=== PATIENT | female | born 1980 | race Caucasian/White ===

== ENCOUNTER 2019-06-19 07:28 | Inpatient (IN) | payer MEDICAID ==
[~2019-06-19] VITALS: Ht 170.2 cm; Wt 104.3 kg
[2019-06-19] MEDS ORDERED: PNV1TABL76 PO (08:48)
[2019-06-19] MEDS ORDERED: FERR325T6 MT (08:49)
[2019-06-19] MEDS ORDERED: FERR325T6 PO (08:49)
[2019-06-19] MEDS ORDERED: BUTORPHANOL TARTRATE 2 MG/ML VIAL IV PRN (09:00)
[2019-06-19] MEDS ORDERED: DEXT 5%/LR + PITOCIN 20UNITS/L 1,000 ML IV SCH (09:00)
[2019-06-19] MEDS ORDERED: CARBOPROST TROMETHAMINE 250 MCG/ML AMPUL IM PRN (09:00)
[2019-06-19] MEDS ORDERED: METHYLERGONOVINE MALEATE 0.2 MG/ML IM PRN (09:00)
[2019-06-19] MEDS ORDERED: LIDOCAINE HCL 1% 20ML VIAL (Pyxis) INJ INFIL SCH (09:00)
[2019-06-19] MEDS ORDERED: MISOPROSTOL 100MCG TABLET VG SCH (09:00)
[2019-06-19] MEDS: LACTATED RINGERS 1,000 ML IV SCH ×3 (10:01→23:41)
[2019-06-19 10:35] LABS: BASOPHILS % 0.5 % (0.0-2.0); EOSINOPHILS % 1.2 % (0.0-5.0); HEMATOCRIT. 35.9 % (36.0-48.0); HEMOGLOBIN. 12.5 g/dL (12.0-16.0); LYMPHOCYTES % 17.4 % (20.0-50.0); MEAN CORPUSCULAR HEMOGLOBIN 30.7 pg (28.0-32.0); MEAN CORPUSCULAR VOLUME 87.8 fL (81.0-99.0); MEAN PLATELET VOLUME 10.5 fl (7.4-10.4); NEUTROPHILS % 73.9 % (40.0-76.0); PLATELET 161 x1000/uL (130-400); RED BLOOD CELL COUNT 4.08 mill/uL (4.2-5.4); RED CELL DISTRIBUTION WIDTH 14.4 % (11.6-14.6)
[2019-06-19 10:38] LABS: CLARITY URINE CLOUDY (CLEAR); COLOR URINE YELLOW (YELLOW); KETONES URINE NEGATIVE (NEGATIVE); LEUKOCYTE ESTERASE URINE 3+ (NEGATIVE); NITRITE URINE NEGATIVE (NEGATIVE); OCCULT BLOOD URINE NEGATIVE (NEGATIVE); PH URINE 5.5 (4.5-8.0); PROTEIN URINE TRACE (NEGATIVE); SPECIFIC GRAVITY URINE 1.021 (1.005-1.030); UROBILINOGEN URINE 0.2 E.U./dL (0.2-1.0)
[2019-06-19 10:43] LABS: INR 0.9; PARTIAL THROMBOPLASTIN TIME 24.9 sec (23.4-31.0); PROTHROMBIN TIME 9.5 sec (9.6-11.0)
[2019-06-19] MEDS: MISOPROSTOL 100MCG TABLET VG PRN ×2 (11:00→15:32)
[2019-06-19 11:24] LABS: *BARBITURATES SCREEN URINE NEGATIVE (NEGATIVE); *BENZODIAZEPINES SCREEN URINE NEGATIVE (NEGATIVE); *COCAINE SCREEN URINE NEGATIVE (NEGATIVE); METHADONE URINE SCREEN NEGATIVE (NEGATIVE)
[2019-06-19 11:25] LABS: *AMPHETAMINES SCREEN URINE NEGATIVE (NEGATIVE); CANNABINOID URINE SCREEN NEGATIVE (NEGATIVE); OPIATES URINE SCREEN NEGATIVE (NEGATIVE); PHENCYCLIDINE URINE SCREEN NEGATIVE (NEGATIVE)
[2019-06-19 11:28] LABS: HEPATITIS B SURFACE ANTIGEN NEGATIVE
[2019-06-20] MEDS ORDERED: CEFAZOLIN 2,000 MG in DEXT 5% WATER 100 ML IV SCH (00:15)
[2019-06-20] MEDS ORDERED: ONDANSETRON HCL 4MG/2ML INJ IV PRN (01:00)
[2019-06-20] MEDS ORDERED: IBUPROFEN 400MG TABLET PO PRN (01:45)
[2019-06-20] MEDS ORDERED: BENZOCAINE/LANOLIN/ALOE VERA SPRAY TOP PRN (01:45)
[2019-06-20] MEDS ORDERED: RHO(D) IMMUNE GLOBULIN 300 MCG/SYR IM PRN (01:45)
[2019-06-20] MEDS: DEXT 5%/LR + PITOCIN 20UNITS/L 1,000 ML IV SCH ×2 (02:11→03:38)
[2019-06-20 04:00] VITALS: BP 104/51
[2019-06-20] MEDS: IBUPROFEN 800MG TABLET PO PRN ×2 (04:07→10:17)
[2019-06-20 07:54] VITALS: BP 98/52
[2019-06-20 16:06] VITALS: BP 92/53
[2019-06-20 19:30] VITALS: BP 113/58
[2019-06-21 04:00] VITALS: BP 116/64
[2019-06-21] MEDS ORDERED: IBUP-2030 PO (07:10)
[2019-06-21 08:33] VITALS: BP 105/62
[2019-06-21 08:57] LABS: BASOPHILS % 0.4 % (0.0-2.0); EOSINOPHILS % 1.5 % (0.0-5.0); HEMOGLOBIN. 11.3 g/dL (12.0-16.0); MEAN CORPUSCULAR HEMOGLOBIN 30.3 pg (28.0-32.0); MEAN CORPUSCULAR VOLUME 88.7 fL (81.0-99.0); MEAN PLATELET VOLUME 10.1 fl (7.4-10.4); MONOCYTES % 5.8 % (2.0-8.0); NEUTROPHILS % 67.3 % (40.0-76.0); PLATELET 164 x1000/uL (130-400); RED BLOOD CELL COUNT 3.72 mill/uL (4.2-5.4); RED CELL DISTRIBUTION WIDTH 14.6 % (11.6-14.6)
== END 2019-06-21 11:15 | disposition home or self-care (01) | DRG 560 ==
LOC: OBSVTOIN 07:28 → 8 EST LDRP 07:28 → 8EST 06-20 02:10
PROVIDERS: ADMIT Obstetrics & Gynecology; ATTEND Obstetrics & Gynecology
PROC: 10E0XZZ Delivery of Products of Conception, External Approach (ICD-10-PCS; principal; 2019-06-20)
PROC: 0KQM0ZZ Repair Perineum Muscle, Open Approach (ICD-10-PCS; 2019-06-20)
PROC: 3E0P7VZ Introduction of Hormone into Female Reproductive, Via Natural or Artificial Opening (ICD-10-PCS; 2019-06-20)
DX: O69.81X0 Labor and delivery complicated by cord around neck, without compression, not applicable or unspecified (principal); O70.1 Second degree perineal laceration during delivery; Z37.0 Single live birth; O77.0 Labor and delivery complicated by meconium in amniotic fluid; Z3A.40 40 weeks gestation of pregnancy; Z83.3 Family history of diabetes mellitus; Z82.49 Family history of ischemic heart disease and other diseases of the circulatory system
CPT/HCPCS: 36415; 80305; 81003; 85025; 86592; 86703; 86762; 86850; 86900; 87340; 99281; J0595; J0690; J2405; J2590; J3490; J7060; J7120

== ENCOUNTER 2023-08-22 17:12 | Emergency (ER) | payer MEDICAID, OTHER ==
[~2023-08-22] VITALS: Ht 170.2 cm; Wt 64.0 kg
[~2023-08-22 17:12] MED LIST: FERR325T6 MT; IBUP-2030 PO; PNV1TABL76 PO
[2023-08-22 17:37] VITALS: O2SAT 98
[2023-08-22] MEDS ORDERED: DIPHENHYDRAMINE 50MG CAPSULE PO ONE (17:45)
[2023-08-22] MEDS: DIPHENHYDRAMINE 25MG CAPSULE PO NR (18:24)
[2023-08-22] MEDS: PREDNISONE 20MG TABLET PO ONE (18:24)
[2023-08-22] MEDS: FAMOTIDINE 20MG TABLET PO ONE (18:24)
[2023-08-22] MEDS ORDERED: P20 MT (18:25)
[2023-08-22] MEDS ORDERED: DIPH25CA83 MT (18:25)
[2023-08-22 18:35] VITALS: BP 128/64; PULSE 77; RESP 18; TEMP 98.1
== END 2023-08-22 18:36 | disposition home or self-care (01) ==
LOC: ER 17:12
DX: T78.49XA Other allergy, initial encounter (principal); X58.XXXA Exposure to other specified factors, initial encounter
CPT/HCPCS: 99284; 81025; Q0163; J7512